=== PATIENT | male | born 1955 | race Caucasian/White ===

== ENCOUNTER → 2016-09-20 | Outpatient (CLI) | payer OTHER ==
[2016-09-20 16:07] LABS: Anion Gap 6 mmol/L; Carbon Dioxide 25 mmol/L (22-30); Chloride 112 mmol/L (98-107); Glucose 107 mg/dL (74-99); Non-African American GFR(MDRD) >60 (>60 ml/min/1.73 sqM); Potassium 4.4 mmol/L (3.5-5.1); Sodium 143 mmol/L (137-145)
[2016-09-20 16:08] LABS: Blood Urea Nitrogen 15 mg/dL (9-20); Calcium 9.1 mg/dL (8.4-10.2)
--- NOTE | 2016-09-22 15:09 | CT ---
EXAMINATION TYPE: CT angio abdomen pelvis DATE OF EXAM: 09/20/2016 COMPARISON: NONE INDICATION: Follow up after abdominal aortic stent placement. DLP: 3877 mGycm, Automated exposure control for dose reduction was used. CONTRAST: 100 mL of Omnipaque 350. Study performed without Oral Contrast TECHNIQUE: Axial images were obtained from above the diaphragm to the pubic rami in the axial plane a t 5 mm thick sections. Reconstructed images are reviewed on the computer in the coronal plane. FINDINGS: Limited CT sections are obtained the lung bases. The lung bases are clear. CT ABDOMEN: Aortoiliac stent is been placed. This appears to begin near the level of the renal artery takeoff. The kidneys appear to be having symmetrical perfusion. Contrast fills the aortic graft. Xuan ac vessels are patent. External iliac vessels are patent to the common femoral arteries. At a junction with a left iliac stent in the aortoiliac graft there is contrast within the previous a neurysm. Example image series 9 image 44. Endovascular leak without extravasation from the aorta may be present. This appears loculated and persistent at this level. No flow into iliac vessels are evide nt. Follow-up can be performed. IMPRESSIONS: 1. Small amount of contrast is adjacent to the aortoiliac stent within the previous aneurysm which m ay be with the junction of the iliac stent on the left. Endovascular leak should be considered. A [employer] message has been communicated to Lilliam Griffiths via the [employer] system on 09/22/2016 3:07 PM, Message ID [id number].
== END ==
LOC: RADCTMAIN 15:36
PROVIDERS: ATTEND Surgery Vascular Surgery
DX: I71.4 Abdominal aortic aneurysm, without rupture (principal)
CPT/HCPCS: 80069; 36415; 74174; Q9967